=== PATIENT | female | born 1975 | race Caucasian/White ===

== ENCOUNTER → 2021-11-16 09:47 | Outpatient (BNVA) | payer OTHER, SELFPAY | PROVIDERS: Family Provider Nurse Practitioner Family; PCP Nurse Practitioner Family; Visit Provider Nurse Practitioner Women's Health | DX: Z01.419 Encounter for gynecological examination (general) (routine) without abnormal findings (principal) | CPT/HCPCS: 87624 ==

== ENCOUNTER → 2022-11-22 11:25 | Outpatient (BNVA) | payer OTHER, SELFPAY | PROVIDERS: Family Provider Nurse Practitioner Family; PCP Nurse Practitioner Family; Visit Provider Nurse Practitioner Women's Health | DX: Z01.411 Encounter for gynecological examination (general) (routine) with abnormal findings (principal); Z12.4 Encounter for screening for malignant neoplasm of cervix; R19.00 Intra-abdominal and pelvic swelling, mass and lump, unspecified site | CPT/HCPCS: 88175 ==

== ENCOUNTER 2022-12-12 08:34 | Outpatient (CLI) | payer OTHER, SELFPAY ==
--- NOTE | 2022-12-12 08:48 | MM_ITS ---
WS: [id number] Bilateral screening 3D tomosynthesis digital mammogram, 12/12/2022 Clinical Data: Z12.39 - Encounter for other screening for malignant neop... Comparison: None. Findings: The breast parenchymal pattern shows heterogeneous density. No spiculated masses or clustered calcifi cations are seen. There are no secondary signs of carcinoma. MM/[place] [id number] Impression: 1. Negative bilateral mammogram with no prior exam for review.. 2. Recommend annual screening mammograms. BIRADS: 1-Negative FOLLOW UP: 1 Year Follow-up The CAD credit report checker was used.
== END 2022-12-12 08:35 | disposition home or self-care (01) ==
PROVIDERS: Family Provider Nurse Practitioner Family; PCP Nurse Practitioner Family; Visit Provider Nurse Practitioner Women's Health
DX: Z12.31 Encounter for screening mammogram for malignant neoplasm of breast (principal)
CPT/HCPCS: 77063; 77067

== ENCOUNTER → 2023-01-03 07:55 | Outpatient (BNVA) | payer OTHER, SELFPAY | PROVIDERS: Family Provider Nurse Practitioner Family; PCP Nurse Practitioner Family; Visit Provider Nurse Practitioner Women's Health | DX: R19.09 Other intra-abdominal and pelvic swelling, mass and lump (principal) | CPT/HCPCS: 76830 ==

== ENCOUNTER 2023-01-29 07:36 | Outpatient (CLI) | payer OTHER, SELFPAY ==
--- NOTE | 2023-01-29 08:00 | MR_ITS ---
WS: [id number] MRI OF THE PELVIS WITHOUT GADOLINIUM ENHANCEMENT. INDICATION: Evaluate uterine fibroid. Pelvic mass. TECHNIQUE: Coronal T2, axial T1, sagittal T2, coronal T2, axial T2, axial T1 fat sat oblique imaging COMPARISON: Ultrasound January 03, 2023 FINDINGS: Large low signal mass in the pelvis appears to be arising from the RIGHT uterine myometrium . Associated mass effect and displacement of the uterus anteriorly with compression. Pelvic mass malissa ures 8.2 x 8.6 x 10.8 cm AP by transverse by craniocaudal. Associated mass effect on the bladder. Mas s abuts the sacrum posteriorly. Compression of the sigmoid colon and rectum. Uterine mass demonstrate s mainly low signal with diffuse heterogeneity and some internal cystic change. Gadolinium not admini stered. Surrounding prominent peripheral vascularity. Findings most likely represent large uterine fi broid. Fluid-filled endometrium. Ovaries are difficult to visualize due to pelvic crowding. Suspected small ovarian cysts. Recommend surgical INNER TUBE INSERTER consultation for consideration of resection. Normal bone marrow signal in the pelvis and sacrum. No inguinal lymphadenopathy. MR/MR pelvis wo con* [id number] IMPRESSION: 1. Low signal pelvic mass measures 8.2 x 8.6 x 10.8 cm AP by transverse by mixer crane operator niocaudal. Associated mass effect on the bladder. 2. This is difficult to localize due to the large size and compression of viraj cent structures. This appears to be arising from the RIGHT aspect of the uterin e myometrium most likely represents uterine fibroid. Associated prominent surro unding vascularity. 3. Considering the size and mass effect recommend INNER TUBE INSERTER consultation for further evaluation
== END 2023-01-29 07:37 | disposition home or self-care (01) ==
PROVIDERS: PCP Nurse Practitioner Family; Visit Provider Nurse Practitioner Women's Health
DX: R19.00 Intra-abdominal and pelvic swelling, mass and lump, unspecified site (principal)
CPT/HCPCS: 72195

== ENCOUNTER → 2023-02-01 11:50 | Outpatient (BNVA) | payer OTHER, SELFPAY | PROVIDERS: PCP Nurse Practitioner Family; Visit Provider Family Medicine | DX: R19.00 Intra-abdominal and pelvic swelling, mass and lump, unspecified site (principal); Z13.6 Encounter for screening for cardiovascular disorders; L30.9 Dermatitis, unspecified | CPT/HCPCS: 80053; 80061; 85025 ==

== ENCOUNTER → 2024-03-30 08:04 | Outpatient (BNVA) | payer BC, SELFPAY | PROVIDERS: PCP Nurse Practitioner Family; Visit Provider Family Medicine | DX: C73 Malignant neoplasm of thyroid gland (principal) | CPT/HCPCS: 84443 ==

== ENCOUNTER 2024-05-06 09:51 | Outpatient (CLI) | payer BC, SELFPAY ==
--- NOTE | 2024-05-06 10:00 | MM_ITS ---
WS: [id number] SCREENING DIGITAL TOMOSYNTHESIS MAMMOGRAM WITH CAD HISTORY: Z12.31 - Encounter for screening mammogram for malignant ... COMPARISON: 12/12/2022 Bilateral CC and MLO with tomosynthesis views submitted. Synthetic mammography reviewed. Computer aid ed detection analyzed. Breast composition: The breasts are heterogeneously dense, which may obscure small masses. No suspici ous masses, microcalcifications or architectural distortion. MM/MM scr tomosynthesis [id number] IMPRESSION: BI-RADS: 1 - Negative FOLLOW UP: 1 Year Follow-up
== END 2024-05-06 09:52 | disposition home or self-care (01) ==
LOC: RAD 09:52
PROVIDERS: PCP Family Medicine; Visit Provider Nurse Practitioner Women's Health
DX: Z12.31 Encounter for screening mammogram for malignant neoplasm of breast (principal); R92.333 Mammographic heterogeneous density, bilateral breasts
CPT/HCPCS: 77063; 77067

== ENCOUNTER 2025-05-07 12:53 | Outpatient (CLI) | payer BC, SELFPAY ==
--- NOTE | 2025-05-07 13:20 | MM_ITS ---
WS: [id number] BILATERAL 3D TOMOSYNTHESIS DIGITAL SCREENING MAMMOGRAPHY WITH CAD CLINICAL INFORMATION: Z12.31 - Encounter for screening mammogram for malignant ... HISTORY: Screening mammogram. No current complaints. COMPARISON: 2023 TECHNIQUE: Bilateral CC and MLO views. FINDINGS: The breasts are composed of heterogeneous fibroglandular density tissue, which can limit the detection of small underlying mass lesions. No suspicious mass, asymmetry, calcifications, or architectural distortion. No evidence of malignancy. Vascular calcification. MM/MM [facility] tomosynthesis [id number] IMPRESSION: DENSITY: The breasts are heterogeneously dense, which may obscure small masses. BI-RADS: 2 - Benign FOLLOW UP: 1 Year Follow-up Recommend return to annual screening mammography.
== END 2025-05-07 12:54 | disposition home or self-care (01) ==
LOC: RAD 12:53
PROVIDERS: PCP Family Medicine; Visit Provider Nurse Practitioner Women's Health
DX: Z12.31 Encounter for screening mammogram for malignant neoplasm of breast (principal); R92.323 Mammographic fibroglandular density, bilateral breasts; R92.333 Mammographic heterogeneous density, bilateral breasts; R92.1 Mammographic calcification found on diagnostic imaging of breast
CPT/HCPCS: 77063; 77067